=== PATIENT | male | born 1995 | race Caucasian/White ===

== ENCOUNTER 2016-10-11 12:29 | Inpatient (IN) | payer OTHER ==
[~2016-10-11] VITALS: Ht 182.9 cm; Wt 75.6 kg
[2016-10-11] MEDS ORDERED: LORAZEPAM 1 MG TAB SL STA (13:08)
[2016-10-11 13:29] LABS: URINE APPEARANCE CLEAR (CLEAR); URINE BILIRUBIN NEG (NEG); URINE COLOR YELLOW; URINE NITRITE NEG (NEG); UROBILINOGEN NEG (NEG)
--- NOTE | 2016-10-11 13:30 | EMERGENCY ROOM VISIT NOTE ---
History Report prepared by Natalyibclaude: Millicent Ag Under the Supervision of: Dr. Heriberto Parson D.O. First contact with patient: 13:07 Chief Complaint: MENTAL HEALTH EVALUATION Stated Complaint: MENTAL HEALTH History of Present Illness The patient is a 21 year old male who presents to the Emergency Room with altered mental status. 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 The patient admittedly took LSD yesterday at around noon. He knew that he did not have classes today so he decided to use this drug. He was doing better throughout the day but then last evening started having hyperactivity and did not sleep at all. His friends gave him a Benadryl 25 milligrams this morning and the patient slept for approximately one hour but then awoke without improvement of his overall symptoms. There is no history of trauma. There is no history of any other drug abuse. The patient does not have a history of any mental health disorders. The patient has not seen any provider prior to coming to the emergency department. He's had no reported headaches or fevers. Source of History: patient Onset: 1200 yesterday Position: other (global) Timing: other (persistent) Modifying Factors (Relieving): other (Benadryl) Associated Symptoms: No fevers, No headache Review of Systems See HPI for pertinent positives & negatives. A total of 10 systems reviewed and were otherwise negative. Past Medical & Surgical Medical Problems: (1) No Known Active Medical Problems Social History Smoking Status: Never Smoker Smokeless Tobacco Use: No Alcohol Use: occasionally Drug Use: other (LSD) Marital Status: single Housing Status: lives with roommate Occupation Status: [employer] student Current/Historical Medications No Active Prescriptions or Reported Meds Allergies Coded Allergies: No Known Allergies (Unverified , 10/11/16) Physical Exam Vital Signs Date Time Temp Pulse Resp B/P Pulse Ox O2 Delivery O2 Flow Rate FiO2 10/11/16 17:45 89 16 102/64 96 Room Air 10/11/16 17:01 101 18 120/71 95 Room Air 10/11/16 16:18 120 10/11/16 16:17 134 18 118/94 96 Room Air 10/11/16 14:57 114 16 88/ 97 10/11/16 12:31 36.5 54 18 132/68 Room Air Physical Exam GENERAL: Patient is awake and alert. He is looking around the room. He intermittently responds to verbal commands. EYES: The conjunctivae are clear. The pupils are round and reactive. EARS, NOSE, MOUTH AND THROAT: The nose is without any evidence of any deformity. Mucous membranes are moist tongue is midline NECK: The neck is nontender and supple. RESPIRATORY: Normal respiratory effort is noted there is no evidence of wheezing rhonchi or rales CARDIOVASCULAR: Regular rate and rhythm noted there no murmurs rubs or gallops normal S1 normal S2 GASTROINTESTINAL: The abdomen is soft. Bowel sounds are present in all quadrants. Abdomen is nontender MUSCULOSKELETAL/EXTREMITIES: There is no evidence of gross deformity full range of motion is noted in the hips and shoulders SKIN: There is no obvious evidence of any rash. There are no petechiae, pallor or cyanosis noted. NEUROLOGIC: Patient is awake alert. He does not answer questions so I cannot assess orientation at this time. Patellar tendon reflexes are 2 plus bilaterally. PSYCH: Patient is currently denying any suicidal or homicidal ideation but he is not answering questions. The patient is inappropriate and is singing to himself instead of answering questions. Patient appears to be responding to internal stimuli. Medical Decision & Procedures ER Provider Diagnostic Interpretation: This X-Ray was reviewed and interpreted by myself and the radiologist. CHEST ONE VIEW PORTABLE IMPRESSION: No acute cardiopulmonary findings. Electronically signed by: Farshad Victor M.D. 10/11/2016 2:[address] scan was reviewed and interpreted by the radiologist and reviewed by myself. CT OF THE HEAD WITHOUT CONTRAST IMPRESSION: No acute intracranial findings. Electronically signed by: Farshad Victor M.D. 10/11/2016 2:50 PM Laboratory Results 10/11/16 13:36 Red Blood Count 5.33, Mean Corpuscular Volume 81.2, Mean Corpuscular Hemoglobin 29.3, Mean Corpuscular Hemoglobin Concent 36.0, Mean Platelet Volume 10.4, Neutrophils (%) (Auto) 64.3, Lymphocytes (%) (Auto) 23.7, Monocytes (%) (Auto) 10.8, Eosinophils (%) (Auto) 0.4, Basophils (%) (Auto) 0.7, Neutrophils # (Auto ) 4.77, Lymphocytes # (Auto) 1.76, Monocytes # (Auto) 0.80, Eosinophils # (Auto ) 0.03, Basophils # (Auto) 0.05 10/11/16 13:36 Test 10/11/16 13:00 10/11/16 13:36 10/11/16 16:05 Urine Color YELLOW Urine Appearance CLEAR (CLEAR) Urine pH 8.0 (4.5-7.5) Urine Specific [place] 1.010 (1.000-1.030) Urine Protein NEG (NEG) Urine Glucose (UA) NEG (NEG) Urine Ketones NEG (NEG) Urine Occult Blood NEG (NEG) Urine Nitrite NEG (NEG) Urine Bilirubin NEG (NEG) Urine Urobilinogen NEG (NEG) Urine Leukocyte Esterase NEG (NEG) Urine Opiates Screen NEG (NEG) Urine Methadone, Qualitative NEG (NEG) Urine Barbiturates NEG (NEG) Urine Phencyclidine (PCP) Level NEG (NEG) Ur Amphetamine/Methamphetamine NEG (NEG) MDMA (Ecstasy) Screen NEG (NEG) Urine Benzodiazepines Screen NEG (NEG) Urine Cocaine Metabolite NEG (NEG) Urine Marijuana (THC) NEG (NEG) White Blood Count 7.42 K/uL (4.8-10.8) Red Blood Count 5.33 M/uL (4.7-6.1) Hemoglobin 15.6 g/dL (14.0-18.0) Hematocrit 43.3 % (42-52) Mean Corpuscular Volume 81.2 fL (80-100) Mean Corpuscular Hemoglobin 29.3 pg (25-34) Mean Corpuscular Hemoglobin Concent 36.0 g/dl (32-36) Platelet Count 260 K/uL (130-400) Mean Platelet Volume 10.4 fL (7.4-10.4) Neutrophils (%) (Auto) 64.3 % Lymphocytes (%) (Auto) 23.7 % Monocytes (%) (Auto) 10.8 % Eosinophils (%) (Auto) 0.4 % Basophils (%) (Auto) 0.7 % Neutrophils # (Auto) 4.77 K/uL (1.4-6.5) Lymphocytes # (Auto) 1.76 K/uL (1.2-3.4) Monocytes # (Auto) 0.80 K/uL (0.11-0.59) Eosinophils # (Auto) 0.03 K/uL (0-0.5) Basophils # (Auto) 0.05 K/uL (0-0.2) RDW Standard Deviation 40.8 fL (36.4-46.3) RDW Coefficient of Variation 13.7 % (11.5-14.5) Immature Granulocyte % (Auto) 0.1 % Immature Granulocyte # (Auto) 0.01 K/uL (0.00-0.02) Anion Gap 9.0 mmol/L (3-11) Est Creatinine Clear Calc Drug Dose 102.5 ml/min Estimated GFR () 98.2 Estimated GFR (Non- 84.7 BUN/Creatinine Ratio 6.8 (10-20) Osmolality 293 mOsm/kg (280-300) Calcium Level 9.7 mg/dl (8.5-10.1) Magnesium Level 2.1 mg/dl (1.8-2.4) Total Bilirubin 2.3 mg/dl (0.2-1) Direct Bilirubin 0.4 mg/dl (0-0.2) Aspartate Amino Transf (AST/SGOT) 19 U/L (15-37) Alanine Aminotransferase (ALT/SGPT) 19 U/L (12-78) Alkaline Phosphatase 80 U/L (45-117) Total Creatine Kinase 303 U/L (39-308) Total Protein 8.4 gm/dl (6.4-8.2) Albumin 4.8 gm/dl (3.4-5.0) Globulin 3.6 gm/dl (2.5-4.0) Albumin/Globulin Ratio 1.3 (0.9-2) Thyroid Stimulating Hormone (TSH) 2.820 uIu/ml (0.300-4.500) Free Thyroxine 1.50 ng/dl (0.80-1.60) Salicylates Level mg/dl (2.8-20) Acetaminophen Level ug/ml (10-30) Ethyl Alcohol mg/dL < 3.0 mg/dl (0-3) CSF Color RED CSF Appearance BLOODY CSF WBC 81 /uL (0-5) CSF RBC 26274 /uL (0) CSF Xanthrochromic Y CSF Cell Count Tube # 1 CSF Mononuclear WBCs % 38.8 % CSF Polynuclear WBCs (%) 61.2 % CSF Chemistry Tube # 2 CSF Glucose 63 mg/dl (40-70) CSF Total Protein 43.4 mg/dl (15.0-45.0) Laboratory results per my review. Medications Administered Medications (Trade) Dose Ordered Sig/Ronald Route Start Time Stop Time Status Last Admin Dose Admin Lorazepam (Ativan Tab) 1 mg NOW STAT SL 10/11/16 13:08 10/11/16 13:10 DC 10/11/16 13:18 1 MG Haloperidol Lactate (Haldol Inj) 10 mg STK-MED ONCE .ROUTE 10/11/16 15:52 10/11/16 15:53 DC 10/11/16 15:52 10 MG Procedure Lumbar Puncture Indication: Altered Mental Status Verbal consent was obtained after the risks and benefits were explained, including but not limited to headache, bleeding/clotting, scarring, infection, pain, and bone/joint/nerve damage. At this time, the risks of the procedure are less than the risks of NOT performing the procedure. A time out was taken and the correct patient and site identified. The patient was placed in the seated position and the back was prepped with betadine and draped in the standard fashion. The L3 intervertebral space was identified, anesthetized locally with 1 % lidocaine without epinephrine, and the spinal needle was inserted through the skin with the bevel parallel to the dural fibers. The needle was carefully advanced into the lumbar cistern and 4 tubes of originally bloody, then clear CSF was obtained. The stylet was replaced and the needle was removed. A bandaid was placed and the patient was placed in the supine position. The patient tolerated the procedure well and there were no complications. ED Course 1300: The patient was evaluated in room A6. A complete history and physical examination were performed. 1308: Lorazepam 1 mg SL. 1535: I discussed the patient's case with the Poison Control [facility]. They will send us information to consult. 1552: Haldol 10 mg IV. 1651: I discussed the patient's case with Dr. Engle, [facility] Hospitalist. The patient will be further evaluated. Medical Decision Prior records/ancillary studies reviewed. Triage Nursing notes reviewed. Additional history obtained from the patient's roommate. The patient's history was concerning for possible psychiatric disturbance. Differential diagnosis: Etiologies such as mood disorder, infection, hypoglycemia, electrolyte abnormalities, cardiac sources, intracerebral event, toxicologic, neurologic, as well as others were entertained. The patient is a 21-year-old male who presented to the emergency department with friends for an evaluation of altered mental status. The patient has been drinking altered mental status since Tuesday. The patient admittedly took LSD. The patient was altered throughout the day according to his friends. He was very hyperactive and did not sleep tonight. The patient continued to have alteration in mental status this morning and his friends felt that this was atypical. The patient presented to the emergency department greater than 24 hours after taking the LSD. He was still very altered. His condition could be consistent with a toxicologic ingestion such as LSD but we are also concerned that this could represent an infectious process as well. I discussed the patient 's laboratory and radiographic studies with him and his roommate. The patient was medically cleared but he required CAT scan head as well as a lumbar puncture to evaluate for possible [employer] infection. The patient was difficult to hold still during the procedure. He moved around in bed and this is why there was significant numbers of red blood cells in the CSF tap. I do feel this is likely related to a traumatic tap and I do not feel it is related to subarachnoid hemorrhage. Because the patient's ongoing symptoms I discussed his case with the on-call [facility] hospitalist group. They've agreed to evaluate the patient in the emergency department for further management and disposition. The patient required Haldol and Ativan to help with agitation. He was reevaluated multiple times. He was improved on subsequent reevaluation still had significant alteration in mental status especially when he trying answer questions. Consults Time Called: 1530 Consulting Physician: KERA Returned Call: [phone] I discussed the patient's case with the Poison Control Center. They will send us information to consult. Additional Consults: Time Called: 1649 Consulted Physician: Dr. Engle [facility] Hospitalist Returned Call: [phone] Additional Comments: I discussed the patient's case with Dr. Engle [facility] Hospitalist. The patient will be further evaluated. Impression Primary Impression: Altered mental status Additional Impression: Recreational drug use Scribe Attestation The scribe's documentation has been prepared under my direction and personally reviewed by me in its entirety. I confirm that the note above accurately reflects all work, treatment, procedures, and medical decision making performed by me. Departure Information Dispostion Being Evaluated By Hospitalist Prescriptions No Active Prescriptions or Reported Meds Referrals No Doctor, Assigned (PCP) Forms HOME CARE DOCUMENTATION FORM, IMPORTANT VISIT INFORMATION Patient Instructions My [facility] Problem Qualifiers
[2016-10-11 13:39] LABS: MANUAL MICROSCOPIC REQUIRED? NO; REVIEW REQ? NO
[2016-10-11 13:57] LABS: BASO % 0.7 %; BASO ABS # 0.05 K/uL (0-0.2); COMPLETE YES; EOS % 0.4 %; HEMATOCRIT 43.3 % (42-52); IG% 0.1 %; LYMPH % 23.7 %; LYMPH ABS # 1.76 K/uL (1.2-3.4); MEAN CELL VOLUME 81.2 fL (80-100); MEAN CORPUSCULAR HEMOGLOBIN 29.3 pg (25-34); MEAN PLATELET VOLUME 10.4 fL (7.4-10.4); MONO % 10.8 %; NEUT % 64.3 %; PLATELET COUNT 260 K/uL (130-400); RED BLOOD COUNT 5.33 M/uL (4.7-6.1); WHITE BLOOD COUNT 7.42 K/uL (4.8-10.8)
--- NOTE | 2016-10-11 14:04 | DIAGNOSTIC IMAGING REPORT ---
CHEST ONE VIEW PORTABLE CLINICAL HISTORY: Altered mental status. COMPARISON STUDY: No previous studies for comparison. FINDINGS: Lung volumes are normal. No pneumothorax or pleural effusion is present. Lungs are clear. Cardiac size is normal. Metastatic contours are normal. There is no evidence of pulmonary edema. IMPRESSION: No acute cardiopulmonary findings. Electronically signed by: Farshad Victor M.D. 10/11/2016 2:03 PM Dictated Date/Time: 10/11/2016 2:02 PM
[2016-10-11 14:09] LABS: BENZODIAZEPINE, URINE NEG (NEG); COCAINE,URINE NEG (NEG); PHENCYCLIDINE, URINE NEG (NEG)
[2016-10-11 14:17] LABS: BUN/CREATININE RATIO 6.8 (10-20); CALCIUM 9.7 mg/dl (8.5-10.1); CREATININE 1.2 mg/dl (0.60-1.40); MAGNESIUM 2.1 mg/dl (1.8-2.4); POTASSIUM 4.1 mmol/L (3.5-5.1)
[2016-10-11 14:31] LABS: ALB/GLOB RATIO 1.3 (0.9-2); THYROID STIMULATING HORMONE 2.82 uIu/ml (0.300-4.500)
--- NOTE | 2016-10-11 14:52 | DIAGNOSTIC IMAGING REPORT ---
CT OF THE HEAD WITHOUT CONTRAST CLINICAL HISTORY: Altered mental status. COMPARISON STUDY: No previous studies for comparison. CT DOSE: 537.48 mGy.cm TECHNIQUE: Helical axial images of the head were obtained without IV contrast. Automated exposure control was utilized for the study. FINDINGS: No acute intracranial hemorrhage, midline shift or mass effect is present. Brain volume is normal. Ventricular system is normal. The basilar cisterns are patent. There are no extra-axial collections. Holm-white differentiation is maintained. There are no findings to suggest acute dural sinus thrombosis or acute territorial infarct. There is no calvarial fracture. Visualized portions of the sinuses and mastoid air cells are clear. IMPRESSION: No acute intracranial findings. Electronically signed by: Farshad Victor M.D. 10/11/2016 2:50 PM Dictated Date/Time: 10/11/2016 2:48 PM
[2016-10-11] MEDS ORDERED: HALOPERIDOL LACTATE 5 MG/ML 1 ML VIAL ONE (15:52)
[2016-10-11 16:56] LABS: CSF TOTAL PROTEIN 43.4 mg/dl (15.0-45.0)
[2016-10-11 17:05] LABS: CSF APPEARANCE BLOODY; CSF COLOR RED
[2016-10-11 17:06] LABS: CSF XANTHOCHROMIC Y
[2016-10-11 17:14] LABS: CSF CHEMISTRY TUBE # 2
[2016-10-11 17:23] LABS: CSF APPEARANCE BLOODY; CSF COLOR RED
[2016-10-11 17:43] LABS: CSF MONONUC RELAT 38.8 %; CSF XANTHOCHROMIC Y
[2016-10-11] MEDS ORDERED: NITROGLYCERIN 0.4 MG SL PER TAB CHARGE SL PRN (17:45)
[2016-10-11] MEDS ORDERED: ACETAMINOPHEN 325 MG TAB PO PRN (17:45)
[2016-10-11] MEDS ORDERED: ZOLPIDEM TARTRATE 5 MG TAB PO PRN (17:45)
[2016-10-11] MEDS ORDERED: CEFTRIAXONE SOD INJ 2,000 MG in DEXTROSE 5% 50ML 50 ML IV SCH (18:30)
[2016-10-11 19:45] VITALS: BP 109/72; PULSE 97; TEMP 36.8; O2SAT 97; Ht 182.9 cm; Wt 75.6 kg
[2016-10-11] MEDS: NSS + 20MEQ KCL 1000ML 1,000 ML IV SCH (20:24)
--- NOTE | 2016-10-11 20:40 | History and Physical ---
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 The main concern of his friend was that of the patient developing overactivity and not sleeping that night. He did sleep after getting Benadryl 25 mg this morning from his friends for about one hour. He reportedly has no other drug use, no history of trauma, no history recent travel. He has no history of mental health disorders. Social History Smoking Status: Never Smoker Smokeless Tobacco Use: No Alcohol Use: none Drug Use: none, other (LSD) Marital Status: single Housing status: lives with roommate Occupational Status: [employer] student Multi-Drug Resistant Organisms History of MDRO: No Allergies Coded Allergies: No Known Allergies (Unverified , 10/11/16) Home Medications No Active Prescriptions or Reported Meds Review of Systems The patient denies chest pain, palpitations, shortness of breath, cough, lower extremity swelling, vision change, hearing change, sore throat, fevers, chills, sweats, weight change, fatigue, nausea, vomiting, abdominal pain, pelvic pain, blood in urine or stool, dysuria, urinary frequency or urgency, lightheadedness , dizziness, headache, rash, abnormal bruising or bleeding, imbalance, focal or generalized weakness, numbness or tingling in arms or legs, arthralgias or myalgias, back or neck pain, night sweats, or allergy symptoms. The review of systems is otherwise negative other than for that already noted above, and at least 10 systems have been reviewed. Physical Exam Vital Signs Date Time Temp Pulse Resp B/P Pulse Ox O2 Delivery O2 Flow Rate FiO2 10/11/16 19:26 71 16 113/68 93 10/11/16 17:45 89 16 102/64 96 Room Air 10/11/16 17:01 101 18 120/71 95 Room Air 10/11/16 16:18 120 10/11/16 16:17 134 18 118/94 96 Room Air 10/11/16 14:57 114 16 88/ 97 10/11/16 12:31 36.5 54 18 132/68 Room Air The patient is awake, well-developed and adequately nourished, alert and oriented 3, normocephalic and atraumatic, lying in bed and in no acute distress. HEENT--PERRL, EOMI, mucous membranes moist, and oropharynx normal. Neck--supple, no JVD or bruits, thyroid normal, trachea midline, no adenopathy. Heart--normal S1 and S2, no extra beats, no murmurs, rubs or gallops. Lungs--clear bilaterally with good air movement, no respiratory distress, no accessory muscle use. Abdomen--normal bowel sounds and soft, nontender and nondistended, no hernias or masses, no organomegaly. Extremities--no cyanosis, clubbing or edema. There are good distal pulses b/l. Dermatologic--normal skin turgor, normal color, warm and dry, no abnormal lymph nodes, no rash. Neurologic--cranial nerves II through XII grossly intact, motor and sensory examination normal, Rheumatologic--normal range of motion, nontender, muscles and joints. Psychiatric--appears anxious Diagnostics Laboratory Results Results Past 24 Hours Test 10/11/16 13:00 10/11/16 13:36 10/11/16 16:05 Range/Units Urine Color YELLOW Urine Appearance CLEAR CLEAR Urine pH 8.0 4.5-7.5 Urine Specific [place] 1.010 1.000-1.030 Urine Protein NEG NEG Urine Glucose (UA) NEG NEG Urine Ketones NEG NEG Urine Occult Blood NEG NEG Urine Nitrite NEG NEG Urine Bilirubin NEG NEG Urine Urobilinogen NEG NEG Urine Leukocyte Esterase NEG NEG Urine Opiates Screen NEG NEG Urine Methadone, Qualitative NEG NEG Urine Barbiturates NEG NEG Urine Phencyclidine (PCP) Level NEG NEG Ur Amphetamine/Methamphetamine NEG NEG MDMA (Ecstasy) Screen NEG NEG Urine Benzodiazepines Screen NEG NEG Urine Cocaine Metabolite NEG NEG Urine Marijuana (THC) NEG NEG White Blood Count 7.42 4.8-10.8 K/uL Red Blood Count 5.33 4.7-6.1 M/uL Hemoglobin 15.6 14.0-18.0 g/dL Hematocrit 43.3 42-52 % Mean Corpuscular Volume 81.2 80-100 fL Mean Corpuscular Hemoglobin 29.3 25-34 pg Mean Corpuscular Hemoglobin Concent 36.0 32-36 g/dl Platelet Count 260 130-400 K/uL Mean Platelet Volume 10.4 7.4-10.4 fL Neutrophils (%) (Auto) 64.3 % Lymphocytes (%) (Auto) 23.7 % Monocytes (%) (Auto) 10.8 % Eosinophils (%) (Auto) 0.4 % Basophils (%) (Auto) 0.7 % Neutrophils # (Auto) 4.77 1.4-6.5 K/uL Lymphocytes # (Auto) 1.76 1.2-3.4 K/uL Monocytes # (Auto) 0.80 0.11-0.59 K/uL Eosinophils # (Auto) 0.03 0-0.5 K/uL Basophils # (Auto) 0.05 0-0.2 K/uL RDW Standard Deviation 40.8 36.4-46.3 fL RDW Coefficient of Variation 13.7 11.5-14.5 % Immature Granulocyte % (Auto) 0.1 % Immature Granulocyte # (Auto) 0.01 0.00-0.02 K/uL Sodium Level 138 136-145 mmol/L Potassium Level 4.1 3.5-5.1 mmol/L Chloride Level 103 98-107 mmol/L Carbon Dioxide Level 26 21-32 mmol/L Anion Gap 9.0 3-11 mmol/L Blood Urea Nitrogen 8 7-18 mg/dl Creatinine 1.20 0.60-1.40 mg/dl Est Creatinine Clear Calc Drug Dose 102.5 ml/min Estimated GFR () 98.2 Estimated GFR (Non- 84.7 BUN/Creatinine Ratio 6.8 10-20 Random Glucose 101 70-99 mg/dl Osmolality 293 280-300 mOsm/kg Calcium Level 9.7 8.5-10.1 mg/dl Magnesium Level 2.1 1.8-2.4 mg/dl Total Bilirubin 2.3 0.2-1 mg/dl Direct Bilirubin 0.4 0-0.2 mg/dl Aspartate Amino Transf (AST/SGOT) 19 15-37 U/L Alanine Aminotransferase (ALT/SGPT) 19 12-78 U/L Alkaline Phosphatase 80 45-117 U/L Total Creatine Kinase 303 39-308 U/L Total Protein 8.4 6.4-8.2 gm/dl Albumin 4.8 3.4-5.0 gm/dl Globulin 3.6 2.5-4.0 gm/dl Albumin/Globulin Ratio 1.3 0.9-2 Thyroid Stimulating Hormone (TSH) 2.820 0.300-4.500 uIu/ml Free Thyroxine 1.50 0.80-1.60 ng/dl Salicylates Level 2.8-20 mg/dl Acetaminophen Level 10-30 ug/ml Ethyl Alcohol mg/dL < 3.0 0-3 mg/dl CSF Color RED CSF Appearance BLOODY CSF WBC 81 0-5 /uL CSF RBC 27225 0 /uL CSF Xanthrochromic Y CSF Cell Count Tube # 1 CSF Mononuclear WBCs % 38.8 % CSF Polynuclear WBCs (%) 61.2 % CSF Chemistry Tube # 2 CSF Glucose 63 40-70 mg/dl CSF Total Protein 43.4 15.0-45.0 mg/dl Microbiology Results 10/11/16 Gram Stain - Final, Resulted 10/11/16 CSF Culture, Resulted Pending Diagnostic Radiology Patient Name: ANIKA PEOPLES Unit Number: [id number] Dictated: 10/11/161447 Transcribed: 10/11/161447 JA Printed Date/Time: [~ rep prt dt]/[~ rep prt tm] [~ rep ct labl] - [~ rep ct ivnm] [facility] [place] [address] Dictated: 10/11/161447 Transcribed: 10/11/161447 JA Printed Date/Time: [~ rep prt dt]/[~ rep prt tm] [~ rep ct labl] - [~ rep ct ivnm] CLINICAL HISTORY: Altered mental status. COMPARISON STUDY: No previous studies for comparison. CT DOSE: 537.48 mGy.cm TECHNIQUE: Helical axial images of the head were obtained without IV contrast. Automated exposure control was utilized for the study. FINDINGS: No acute intracranial hemorrhage, midline shift or mass effect is present. Brain volume is normal. Ventricular system is normal. The basilar cisterns are patent. There are no extra-axial collections. Holm-white differentiation is maintained. There are no findings to suggest acute dural sinus thrombosis or acute territorial infarct. There is no calvarial fracture. Visualized portions of the sinuses and mastoid air cells are clear. IMPRESSION: No acute intracranial findings. Electronically signed by: Farshad Vicotr M.D. 10/11/2016 2:50 PM Dictated Date/Time: 10/11/2016 2:48 PM The status of this report is Signed. Draft = Not yet reviewed or approved by Radiologist. Signed = Reviewed and approved by Radiologist. <AttendingPhy></AttendingPhy> <FamilyPhy>No Doctor, Assigned</FamilyPhy> < PrimaryPhy>No Doctor, Assigned</PrimaryPhy> <UnitNumber>[id number]</UnitNumber> <VisitNumber>[id number]</VisitNumber> <PatientName>ANIKA PEOPLES</ PatientName> <DateOfBirth>1995</DateOfBirth> <Location>[facility]</Location> < ServiceDate>10/11/16</ServiceDate> <MNE>ESINDI</MNE> <OrderingPhy>Heriberto Parson D.O.</OrderingPhy> <OrderingPhyMNE>f rep ord dr matta</OrderingPhyMNE> <DictatingPhyMNE>f rep dict dr matta</DictatingPhyMNE> <CCListMNE>f rep ct mne</ CCListMNE> <AdmittingPhyMNE>f pt admit dr matta</AdmittingPhyMNE> <AttendingPhyMNE >f pt attend dr matta</AttendingPhyMNE> <ConsultingPhyMNE>f pt consult dr matta</ConsultingPhyMNE> <FamilyPhyMNE>f pt fam dr matta</FamilyPhyMNE> <OtherPhyMNE>f pt other dr matta</OtherPhyMNE> < PrimaryPhyMNE>f pt prim care dr matta</PrimaryPhyMNE> <ReferringPhyMNE>f pt referring dr matta</ReferringPhyMNE> Patient Name: RICHELLEANIKA Unit Number: [id number] Dictated: 10/11/16 1402 Transcribed: 10/11/16 140 JA Printed Date/Time: [~ rep prt dt]/[~ rep prt tm] [~ rep ct labl] - [~ rep ct ivnm] [facility] [place] [address] Dictated: 10/11/16 1402 Transcribed: 10/11/16 1402 JA Printed Date/Time: [~ rep prt dt]/[~ rep prt tm] [~ rep ct labl] - [~ rep ct ivnm] [~ rep ct add3]] [facility] CLINICAL HISTORY: Altered mental status. COMPARISON STUDY: No previous studies for comparison. FINDINGS: Lung volumes are normal. No pneumothorax or pleural effusion is present. Lungs are clear. Cardiac size is normal. Metastatic contours are normal. There is no evidence of pulmonary edema. IMPRESSION: No acute cardiopulmonary findings. Electronically signed by: Farshad Victor M.D. 10/11/2016 2:03 PM Dictated Date/Time: 10/11/2016 2:02 PM The status of this report is Signed. Draft = Not yet reviewed or approved by Radiologist. Signed = Reviewed and approved by Radiologist. <AttendingPhy></AttendingPhy> <FamilyPhy>No Doctor, Assigned</FamilyPhy> < PrimaryPhy>No Doctor, Assigned</PrimaryPhy> <UnitNumber>[id number]</UnitNumber> <VisitNumber>[id number]</VisitNumber> <PatientName>ANIKA PEOPLES</ PatientName> <DateOfBirth>1995</DateOfBirth> <Location>[facility]</Location> < ServiceDate>10/11/16</ServiceDate> <MNE>ESINDI</MNE> <OrderingPhy>Heriberto Parson D.O.</OrderingPhy> <OrderingPhyMNE>f rep ord dr matta</OrderingPhyMNE> <DictatingPhyMNE>f rep dict dr matta</DictatingPhyMNE> <CCListMNE>f rep ct mne</ CCListMNE> <AdmittingPhyMNE>f pt admit dr matta</AdmittingPhyMNE> <AttendingPhyMNE >f pt attend dr matta</AttendingPhyMNE> <ConsultingPhyMNE>f pt consult dr matta</ConsultingPhyMNE> <FamilyPhyMNE>f pt fam dr matta</FamilyPhyMNE> <OtherPhyMNE>f pt other dr matta</OtherPhyMNE> < PrimaryPhyMNE>f pt prim care dr matta</PrimaryPhyMNE> <ReferringPhyMNE>f pt referring dr matta</ReferringPhyMNE> Impression Assessment and Plan LSD use with persistent hyperactivity and disorientation--patient did undergo a lumbar puncture in the emergency department, which did show a few elevated white blood cells, but I suspect this is more related to a traumatic tap, as it has a significant number of red blood cells with well. We'll place patient on ceftriaxone 2 g IV daily for now and follow the remainder of the CSF sampling. He'll be placed on normal saline with potassium chloride 20 mEq at 150 ML's per hour. Agitation--of note, the patient did respond and Haldol 10 mg IV while in the emergency department. If he were to have recurrent agitation, would place him on Haldol 5 mg IM, and lorazepam 2 mg IV that time. Level of Care Telemetry Advanced Directives Existing Advance Directive: No Existing Living Will: No Existing Power of Colorectal Surgeon: No Resuscitation Status FULL RESUSCITATION VTE Prophylaxis VTE Risk Assessment Done? Y/N: Yes Risk Level: Low Given or contraindicated: SCD's Social Service Consult None Apply
[2016-10-12 00:36] VITALS: BP 122/57; PULSE 101; TEMP 36.6; O2SAT 98
[2016-10-12] MEDS: NSS + 20MEQ KCL 1000ML 1,000 ML IV SCH (04:10)
[2016-10-12 04:24] VITALS: BP 93/57; PULSE 87; TEMP 36.6; O2SAT 95
[2016-10-12 07:23] VITALS: BP 108/62; PULSE 98; TEMP 36.6; O2SAT 96
--- NOTE | 2016-10-12 10:23 | Discharge Instructions ---
Discharge Instructions Admission Reason for Admission: Altered Mental Status, Recreational Drug Use Discharge Discharge Diagnosis / Problem: Altered mental status due to recreational drug intoxication Discharge Goals Goal(s): Specific goals (do not abuse illicit drugs) Activity Recommendations Activity Limitations: resume your previous activity Lifting Limitations: none Exercise/Sports Limitations: none Driving or Machine Use: no limitations . Instructions / Follow-Up Instructions / Follow-Up Follow up with PCP within 1-2 weeks Current Hospital Diet Patient's current hospital diet: Regular Diet Discharge Diet Recommended Diet: Regular Diet Procedures Procedures Performed: Lumbar puncture Pending Studies Studies pending at discharge: yes List of pending studies: CSF culture Laboratory Results Last 24 Hours Test 10/11/16 13:00 10/11/16 13:36 10/11/16 16:05 Urine Color YELLOW Urine Appearance CLEAR Urine pH 8.0 Urine Specific [place] 1.010 Urine Protein NEG Urine Glucose (UA) NEG Urine Ketones NEG Urine Occult Blood NEG Urine Nitrite NEG Urine Bilirubin NEG Urine Urobilinogen NEG Urine Leukocyte Esterase NEG Urine Opiates Screen NEG Urine Methadone, Qualitative NEG Urine Barbiturates NEG Urine Phencyclidine (PCP) Level NEG Ur Amphetamine/Methamphetamine NEG MDMA (Ecstasy) Screen NEG Urine Benzodiazepines Screen NEG Urine Cocaine Metabolite NEG Urine Marijuana (THC) NEG White Blood Count 7.42 K/uL Red Blood Count 5.33 M/uL Hemoglobin 15.6 g/dL Hematocrit 43.3 % Mean Corpuscular Volume 81.2 fL Mean Corpuscular Hemoglobin 29.3 pg Mean Corpuscular Hemoglobin Concent 36.0 g/dl Platelet Count 260 K/uL Mean Platelet Volume 10.4 fL Neutrophils (%) (Auto) 64.3 % Lymphocytes (%) (Auto) 23.7 % Monocytes (%) (Auto) 10.8 % Eosinophils (%) (Auto) 0.4 % Basophils (%) (Auto) 0.7 % Neutrophils # (Auto) 4.77 K/uL Lymphocytes # (Auto) 1.76 K/uL Monocytes # (Auto) 0.80 K/uL Eosinophils # (Auto) 0.03 K/uL Basophils # (Auto) 0.05 K/uL RDW Standard Deviation 40.8 fL RDW Coefficient of Variation 13.7 % Immature Granulocyte % (Auto) 0.1 % Immature Granulocyte # (Auto) 0.01 K/uL Sodium Level 138 mmol/L Potassium Level 4.1 mmol/L Chloride Level 103 mmol/L Carbon Dioxide Level 26 mmol/L Anion Gap 9.0 mmol/L Blood Urea Nitrogen 8 mg/dl Creatinine 1.20 mg/dl Est Creatinine Clear Calc Drug Dose 102.5 ml/min Estimated GFR () 98.2 Estimated GFR (Non- 84.7 BUN/Creatinine Ratio 6.8 Random Glucose 101 mg/dl Osmolality 293 mOsm/kg Calcium Level 9.7 mg/dl Magnesium Level 2.1 mg/dl Total Bilirubin 2.3 mg/dl Direct Bilirubin 0.4 mg/dl Aspartate Amino Transf (AST/SGOT) 19 U/L Alanine Aminotransferase (ALT/SGPT) 19 U/L Alkaline Phosphatase 80 U/L Total Creatine Kinase 303 U/L Total Protein 8.4 gm/dl Albumin 4.8 gm/dl Globulin 3.6 gm/dl Albumin/Globulin Ratio 1.3 Thyroid Stimulating Hormone (TSH) 2.820 uIu/ml Free Thyroxine 1.50 ng/dl Salicylates Level mg/dl Acetaminophen Level ug/ml Ethyl Alcohol mg/dL < 3.0 mg/dl CSF Color RED CSF Appearance BLOODY CSF WBC 81 /uL CSF RBC 59304 /uL CSF Xanthrochromic Y CSF Cell Count Tube # 1 CSF Mononuclear WBCs % 38.8 % CSF Polynuclear WBCs (%) 61.2 % CSF Chemistry Tube # 2 CSF Glucose 63 mg/dl CSF Total Protein 43.4 mg/dl Work Instructions Return To Work: 1 day School Instructions Return To School: 1 day Medical Emergencies . Who to Call and When: Medical Emergencies: If at any time you feel your situation is an emergency, please call 911 immediately. . Non-Emergent Contact Non-Emergency issues call your: Primary Care Provider . . "Provider Documentation" section prepared by Reuben Alejandre. VTE Core Measure Inpt VTE Proph given/why not?: SCD's
[2016-10-12 10:43] VITALS: BP 108/62; PULSE 98; TEMP 36.6; O2SAT 96
--- NOTE | 2016-10-12 15:51 | DISCHARGE SUMMARY ---
DISCHARGE DIAGNOSES: 1. Hallucinogenic drug intoxication. 2. Agitation related to #1. HOSPITAL COURSE: Mr. Bañuelos is a 21-year-old gentleman who was brought to the Emergency Department by his roommate complaining of altered mentation. He apparently took LSD the day prior to presenting to the ER. Throughout that night he apparently was agitated, would not sleep. He took some Benadryl to get a little bit of sleep but throughout the day of admission continued to have agitation and was brought to the Emergency Room. In the Emergency Room he was given a dose of Haldol with some improvement of his symptoms. His workup n the ER included a CBC and chemistries that were largely unremarkable. Urinalysis was unremarkable. Urine toxicology was also negative. He did undergo a CT scan of the head which showed no acute findings. Chest x-ray was unremarkable as well. He did undergo a spinal tap in the ER. His CSF was sent for culture, the gram stain of which showed no organisms and a few WBCs. The cell count on 2 tubes showed 8 WBCs and 700 RBCs in 1 tube and 81 WBCs and 60,000 RBCs in a second tube. He had no fever, no leukocytosis and no other outward clinical signs or symptoms that could be attributable to a [employer] infection. He was placed empirically on broad spectrum antibiotics and was watched overnight. By this morning he is back to his baseline mentation, is feeling well. He remains afebrile and hemodynamically stable and at this point is being discharged home. He was counseled extensively on the dangers of recreational drug abuse. He was asked to follow up with PCP within 1 week. DISCHARGE MEDICATIONS: None. PHYSICAL EXAMINATION: On the day of discharge showed: GENERAL: The patient is awake, alert and oriented in no acute distress. HEAD, EYES, EARS, NOSE, AND THROAT: The sclera are nonicteric. Mucous membranes are moist. NECK: The trachea is midline. There is no JVD. RESPIRATORY: the lungs are grossly clear with good air entry. He is not in any respiratory distress. CARDIOVASCULAR EXAMINATION: S1 and S2 are heard with regular rate and rhythm. There is no murmur, rub or gallop. ABDOMEN: Soft, nontender, nondistended. Bowel sounds are present. EXTREMITIES: Warm and well perfused without edema. SKIN: Warm and dry. There is no cyanosis or rash. MUSCULOSKELETAL: There is no chest wall tenderness. There is no joint effusion or joint tenderness. NEUROLOGIC: The patient is awake and alert. There are no focal deficits. Gait was not assessed. PSYCHIATRIC: The patient is calm and cooperative. He exhibits a normal mood and affect. DISCHARGE FOLLOW-UP INSTRUCTIONS: Follow up with PCP within 1 week. DISCHARGE ACTIVITIES: The patient may resume his usual activities as tolerated. DISCHARGE DIET: The patient should maintain a regular diet as tolerated. Total time spent arranging this discharge was 30 minutes.
[2016-10-13 11:13] LABS: REFERENCE QUEST TEST REPORT
[2016-10-15 14:35] LABS: SYNTHETIC CANNABINOIDS QL URIN NEGATIVE (Negative)
[2017-01-26] MEDS ORDERED: ONDA4TAB10 SL (10:21)
== END 2016-10-12 11:04 | disposition home or self-care (01) | DRG 897 ==
LOC: ENRESERV → ENRESERVTM → ENRESERVDT → C.EDB 12:32 → C.MED 17:49
PROVIDERS: ADMIT Hospitalist; ATTEND Hospitalist
PROC: 009U3ZX Drainage of Spinal Canal, Percutaneous Approach, Diagnostic (ICD-10-PCS; principal; 2016-10-11)
DX: F16.99 Hallucinogen use, unspecified with unspecified hallucinogen-induced disorder (principal); R45.1 Restlessness and agitation

== ENCOUNTER 2016-10-21 10:05 | Emergency (ER) | payer OTHER ==
[~2016-10-21] VITALS: Ht 182.9 cm; Wt 77.9 kg
[2016-10-21 10:07] VITALS: TEMP 36.5; Ht 182.9 cm; Wt 77.9 kg
[2016-10-21] MEDS ORDERED: SODIUM CHLORIDE 0.9% 1000ML 1,000 ML IV STA ×2 (10:25)
[2016-10-21] MEDS ORDERED: ONDANSETRON INJ 2 MG/ML 2 ML VIAL IV STA (10:25)
[2016-10-21] MEDS ORDERED: HYDROmorphone INJ 1 MG/ML SYR IV STA (10:25)
--- NOTE | 2016-10-21 10:36 | EMERGENCY ROOM VISIT NOTE ---
History Report prepared by Power: Otilia Mckenna Under the Supervision of: Dr. Reuben Guzman M.D. First contact with patient: 10:15 Chief Complaint: HEADACHE Stated Complaint: LUMBAR PUNCTURE, HEADACHE History of Present Illness The patient is a 21 year old male who presents to the Emergency Room with complaints of a persistent headache that began several days ago. He currently rates his discomfort as a 2/10 in severity. Per records, the patient was brought to the emergency department ten days ago after taking LSD. The patient notes that he had multiple lumbar puncture attempts while in the hospital. He states that he has developed a headache that is worsened with standing and sitting for long periods of time. He states that his headache is alleviated with lying flat. The patient states that he has tried taking Tylenol and caffeine for his headache. He states that he was referred here by [facility] for a blood patch. The patient states that he did have neck pain yesterday, but denies any current neck pain. Source of History: patient Onset: several days ago Position: head Symptom Intensity: 2/10 Timing: other (persistent) Modifying Factors (Worsening): other (standing or sitting) Modifying Factors (Relieving): other (lying flat) Associated Symptoms: No neck pain Review of Systems See HPI for pertinent positives & negatives. A total of 10 systems reviewed and were otherwise negative. Past Medical & Surgical Medical Problems: (1) No Known Active Medical Problems Family History No pertinent family history stated. Social History Smoking Status: Never Smoker Alcohol Use: occasionally Drug Use: none, other Marital Status: single Housing Status: lives with roommate Occupation Status: [employer] student Current/Historical Medications No Active Prescriptions or Reported Meds Allergies Coded Allergies: No Known Allergies (Unverified , 10/21/16) Physical Exam Vital Signs Date Time Temp Pulse Resp B/P Pulse Ox O2 Delivery O2 Flow Rate FiO2 10/21/16 12:11 67 97/65 99 10/21/16 11:40 55 14 100 10/21/16 11:29 99/73 10/21/16 11:10 69 13 100 10/21/16 11:05 85 18 97 10/21/16 10:58 113/73 10/21/16 10:36 105/63 10/21/16 10:07 36.5 82 17 113/73 99 Room Air Physical Exam GENERAL: Patient is a healthy-appearing well-nourished HEAD: Normocephalic atraumatic EYES: Ocular movements intact pupils equal and react to light OROPHARYNX mucous membranes are moist no exudates present no erythema or edema present NECK: Supple no nuchal rigidity. No evidence of meningitis or encephalitis on exam. CHEST: Good equal expansion LUNGS: Clear and equal to auscultation CARDIAC: Normal S1 and S2 ABDOMEN: Soft nontender no guarding BACK: No CVA tenderness EXTREMITIES: No pain upon palpation normal muscle strength in all groups no clubbing cyanosis or edema NEURO: Patient is following commands is answering questions appropriately. Alert and oriented x3 Cranial Nerves 2-12 grossly intact Medical Decision & Procedures Laboratory Results 10/21/16 10:30 Red Blood Count 5.06, Mean Corpuscular Volume 81.4, Mean Corpuscular Hemoglobin 28.7, Mean Corpuscular Hemoglobin Concent 35.2, Mean Platelet Volume 10.1, Neutrophils (%) (Auto) 58.4, Lymphocytes (%) (Auto) 31.4, Monocytes (%) (Auto) 8.2, Eosinophils (%) (Auto) 1.3, Basophils (%) (Auto) 0.5, Neutrophils # (Auto) 3.50, Lymphocytes # (Auto) 1.88, Monocytes # (Auto) 0.49, Eosinophils # (Auto) 0.08, Basophils # (Auto) 0.03 10/21/16 10:30 Test 10/21/16 10:30 10/21/16 12:02 White Blood Count 5.99 K/uL (4.8-10.8) Red Blood Count 5.06 M/uL (4.7-6.1) Hemoglobin 14.5 g/dL (14.0-18.0) Hematocrit 41.2 % (42-52) Mean Corpuscular Volume 81.4 fL (80-100) Mean Corpuscular Hemoglobin 28.7 pg (25-34) Mean Corpuscular Hemoglobin Concent 35.2 g/dl (32-36) Platelet Count 253 K/uL (130-400) Mean Platelet Volume 10.1 fL (7.4-10.4) Neutrophils (%) (Auto) 58.4 % Lymphocytes (%) (Auto) 31.4 % Monocytes (%) (Auto) 8.2 % Eosinophils (%) (Auto) 1.3 % Basophils (%) (Auto) 0.5 % Neutrophils # (Auto) 3.50 K/uL (1.4-6.5) Lymphocytes # (Auto) 1.88 K/uL (1.2-3.4) Monocytes # (Auto) 0.49 K/uL (0.11-0.59) Eosinophils # (Auto) 0.08 K/uL (0-0.5) Basophils # (Auto) 0.03 K/uL (0-0.2) RDW Standard Deviation 39.3 fL (36.4-46.3) RDW Coefficient of Variation 13.2 % (11.5-14.5) Immature Granulocyte % (Auto) 0.2 % Immature Granulocyte # (Auto) 0.01 K/uL (0.00-0.02) Anion Gap 8.0 mmol/L (3-11) Est Creatinine Clear Calc Drug Dose 97.0 ml/min Estimated GFR () 89.1 Estimated GFR (Non- 76.9 BUN/Creatinine Ratio 9.5 (10-20) Calcium Level 9.2 mg/dl (8.5-10.1) Total Bilirubin 0.7 mg/dl (0.2-1) Direct Bilirubin 0.1 mg/dl (0-0.2) Aspartate Amino Transf (AST/SGOT) 16 U/L (15-37) Alanine Aminotransferase (ALT/SGPT) 16 U/L (12-78) Alkaline Phosphatase 84 U/L (45-117) Total Protein 7.9 gm/dl (6.4-8.2) Albumin 4.3 gm/dl (3.4-5.0) Lipase 188 U/L (73-393) Urine Color YELLOW Urine Appearance CLEAR (CLEAR) Urine pH 6.5 (4.5-7.5) Urine Specific [place] 1.018 (1.000-1.030) Urine Protein NEG (NEG) Urine Glucose (UA) NEG (NEG) Urine Ketones NEG (NEG) Urine Occult Blood NEG (NEG) Urine Nitrite NEG (NEG) Urine Bilirubin NEG (NEG) Urine Urobilinogen NEG (NEG) Urine Leukocyte Esterase NEG (NEG) Labs reviewed by ED physician. Medications Administered Medications (Trade) Dose Ordered Sig/Ronald Route Start Time Stop Time Status Last Admin Dose Admin Sodium Chloride 1,000 ml @ 999 mls/hr Q1H1M STAT IV 1/26/17 10:25 10/21/16 11:25 DC 10/21/16 10:39 999 MLS/HR Sodium Chloride (Nss 1000ml) 1,000 ml @ 999 mls/hr Q1H1M STAT IV 10/21/16 10:25 10/21/16 11:25 DC 10/21/16 10:40 999 MLS/HR Hydromorphone HCl (Dilaudid Inj) 1 mg NOW STAT IV 10/21/16 10:25 10/21/16 10:27 DC 10/21/16 10:40 1 MG Ondansetron HCl (Zofran Inj) 4 mg NOW STAT IV 10/21/16 10:25 10/21/16 10:27 DC 10/21/16 10:40 4 MG Ketorolac Tromethamine (Toradol Inj) 30 mg NOW STAT IV 10/21/16 11:18 10/21/16 11:19 DC 10/21/16 11:36 30 MG Prochlorperazine Edisylate (Compazine Inj) 10 mg NOW STAT IV 10/21/16 11:18 10/21/16 11:19 DC 10/21/16 11:39 10 MG Diphenhydramine HCl (Benadryl Inj) 50 mg NOW STAT IV 10/21/16 11:18 10/21/16 11:19 DC 10/21/16 11:36 50 MG ED Course 1018: Past medical records reviewed. The patient was evaluated in room B4B. A complete history and physical examination was performed. 1025: Ordered Zofran Inj 4 mg IV, Dilaudid Inj 1 mg IV, Sodium Chloride 1000 ml @ 999 mls/hr IV, Sodium Chloride 1000 ml @ 999 mls/hr IV. 1027: I discussed the patients case with Dr. Pérez, Anesthesiology. He will be down to evaluate the patient. 1118: Ordered Benadryl Inj 50 mg IV, Compazine Inj 10 mg IV, Toradol Inj 30 mg IV. 1119: I rediscussed the patients case with Dr. Pérez, Anesthesiology. He is not going to do a blood patch. 1200: Upon reexamination the patient is resting comfortably. I discussed results and treatment plan with the patient. He verbalizes agreement and understanding. The patient is ready for discharge. Medical Decision Differential diagnosis: Etiologies such as migraine headache, meningitis, sinusitis, CO exposure, ICH, SAH, infection, tumor, headache, sinus thrombosis, arterial dissection, as well as others were entertained. This is a 21-year-old male who presents emergency Department with post lumbar puncture procedure headache. The lumbar pressures performed approximate 10 days ago. The patient is healthy in appearance and has no evidence of Meningitis or encephalitis on exam. An IV was established, patient given normal saline bolus 2 Dilaudid, Compazine, Benadryl, Toradol. Repeat examination revealed improvement patient's symptoms. The patient was evaluated by anesthesia however the patient is reluctant to get a blood patch performed therefore he will be released to go home for follow-up with [facility]. Patient was in agreement with the treatment plan. Consults Time Called: 102 Consulting Physician: Dr. Pérez, Anesthesia Returned Call: 102 I discussed the patients case with Dr. Pérez, Anesthesia. He will be down to evaluate the patient. Impression Primary Impression: Headache Scribe Attestation The scribe's documentation has been prepared under my direction and personally reviewed by me in its entirety. I confirm that the note above accurately reflects all work, treatment, procedures, and medical decision making performed by me. Departure Information Dispostion Home / Self-Care Prescriptions No Active Prescriptions or Reported Meds Referrals No Doctor, Assigned (PCP) Forms HOME CARE DOCUMENTATION FORM, IMPORTANT VISIT INFORMATION, School Instructions, Work Instructions Patient Instructions ED Headache Post Spinal Tap No Patc, Headache Pain, My [facility] Additional Instructions Increase fluids next 48 hours You have been examined and treated today on an emergency basis only. This is not a substitute for, or an effort to provide, complete comprehensive medical care. It is impossible to recognize and treat all injuries or illnesses in a single emergency department visit. It is therefore important that you follow up closely with [facility]. Call as soon as possible for an appointment. Thank you for your time and consideration. I look forward to speaking with you again soon. Please don't hesitate to call us if you have any questions. Problem Qualifiers Primary Impression: Headache Headache type: unspecified Headache chronicity pattern: acute headache Intractability: not intractable Qualified Codes: R51 - Headache
[2016-10-21 10:45] LABS: BASO % 0.5 %; BASO ABS # 0.03 K/uL (0-0.2); COMPLETE YES; EOS % 1.3 %; HEMATOCRIT 41.2 % (42-52); IG% 0.2 %; LYMPH % 31.4 %; LYMPH ABS # 1.88 K/uL (1.2-3.4); MEAN CELL VOLUME 81.4 fL (80-100); MEAN CORPUSCULAR HEMOGLOBIN 28.7 pg (25-34); MEAN CORPUSCULAR HGB CONC 35.2 g/dl (32-36); MEAN PLATELET VOLUME 10.1 fL (7.4-10.4); MONO % 8.2 %; NEUT % 58.4 %; PLATELET COUNT 253 K/uL (130-400); RED BLOOD COUNT 5.06 M/uL (4.7-6.1); WHITE BLOOD COUNT 5.99 K/uL (4.8-10.8)
[2016-10-21 11:03] LABS: BUN/CREATININE RATIO 9.5 (10-20); CALCIUM 9.2 mg/dl (8.5-10.1); CREATININE 1.3 mg/dl (0.60-1.40)
[2016-10-21] MEDS ORDERED: KETOROLAC TROMETHAMINE 30 MG/ML VIAL IV STA (11:18)
[2016-10-21] MEDS ORDERED: PROCHLORPERAZINE 5 MG/ML 2 ML VIAL IV STA (11:18)
[2016-10-21] MEDS ORDERED: DiphenhydrAMINE HCL 50 MG/ML VIAL IV STA (11:18)
[2016-10-21 12:11] VITALS: BP 97/65; PULSE 67; O2SAT 99
[2016-10-21 12:24] LABS: URINE APPEARANCE CLEAR (CLEAR); URINE BILIRUBIN NEG (NEG); URINE COLOR YELLOW; URINE NITRITE NEG (NEG); URINE PH 6.5 (4.5-7.5); URINE SPECIFIC GRAVITY 1.018 (1.000-1.030); UROBILINOGEN NEG (NEG)
[2016-10-21 12:36] LABS: MANUAL MICROSCOPIC REQUIRED? NO; REVIEW REQ? NO
--- NOTE | 2016-10-21 13:00 | Anesthesiology Progress Note ---
Anesthesia Progress Note Date of Service Oct 21, 2016. Progress Notes The pt is a 21M who presented to the ED 10 days ago. At the time, he had LSD in his system. A spinal tap was performed in the ED. He returns today with a mild GALICIA and some back discomfort. He states the GALICIA was worse the few days after his lumbar puncture. Now, he states having a GALICIA after sitting or standing for 45-60 minutes, which improves when he lays down. He states taking in caffeine, but not adequately hydrating himself. I spoke to him about the risks vs. benefits of a epidural blood patch. He stated that he would try conservative therapy ( oral hydration, caffeine, and NSAIDs). I told him to return to the ED if his headache or back symptoms worsened or did not improve. I spoke with Dr. Guzman , and updated him on the pt's decision.
[2017-01-26] MEDS ORDERED: ONDA4TAB10 SL (10:21)
== END 2016-10-21 12:12 | disposition home or self-care (01) ==
LOC: C.EDB 10:07
DX: G97.1 Other reaction to spinal and lumbar puncture (principal)